=== PATIENT | male | born 2000 | race Caucasian/White ===

== ENCOUNTER 2023-06-14 10:14 | Emergency (ER) | payer MEDICAID, SELFPAY ==
--- NOTE | ~2023-06-14 | XR_ITS ---
EXAMINATION: XR CHEST CLINICAL INFORMATION: Chest discomfort with movement COMPARISON: 08/28/2019 TECHNIQUE: Frontal view of the chest was obtained. FINDINGS: The lungs are hypoinflated. Tiny area of atelectasis present in the left costophrenic angle. No significant abnormality is noted involving the heart, lungs, mediastinum, bony thorax or soft tissues. XR/XR chest 1V IMPRESSION: No acute intrathoracic disease.
--- NOTE | 2023-06-14 10:18 | ECG_ITS ---
Test Reason : cp Blood Pressure : / mmHG Vent. Rate : 069 BPM Atrial Rate : 069 BPM P-R Int : 164 ms QRS Dur : 098 ms QT Int : 358 ms P-R-T Axes : 026 -13 018 degrees QTc Int : 383 ms Normal sinus rhythm Minimal voltage criteria for LVH, may be normal variant ( R in aVL ) Borderline ECG No previous ECGs available Referred By: Generic ED Physician Electronically Signed By:Eduardo Suero
[2023-06-14 10:28] VITALS: BP 122/87; PULSE 61; RESP 18; TEMP 36.7; O2SAT 98; BMI 34.2
--- NOTE | 2023-06-14 10:49 | ED.GENADULT ---
HPI - General Adult General Chief complaint: Upper Respiratory Symptoms Stated complaint: chest pain Time Seen by Provider: 06/14/23 10:47 Source: patient Mode of arrival: ambulatory Limitations: no limitations History of Present Illness HPI narrative: Patient is a 22-year-old male presenting to the emergency department with complaint of right anterior chest pain for the past 3 days. He reports that prior to onset of his chest pain, he had congestion and cough for several days. Denies fevers. Denies shortness of breath. Took ibuprofen with temporary relief. States pain increases with laughing, laying on right side. Denies calf pain or swelling. MD complaint: chest pain Onset (ago): day(s) Location: chest Radiation: non-radiation Severity: moderate Quality: sharp Pain Consistency: colicky Relieving factors: rest Exacerbating factors: movement Associated symptoms: cough Treatments prior to arrival: NSAID Related Data Previous Rx's Medication Instructions Recorded benzonatate 100 mg capsule 100 mg PO TID PRN cough #20 caps 06/14/23 lidocaine 5 % topical patch 1 patch topical DAILY #15 ea 06/14/23 Allergies Allergy/AdvReac Type Severity Reaction Status Date / Time No Known Allergies Allergy Unverified 12/07/19 17:11 [No Known Allergies*] Review of Systems Review of Systems: As per HPI. Yes all other systems are reviewed and are negative Constitutional: Constitutional: Reports as per HPI [facility] Social History Social History Advance Directives: No Advance Directives Information Provided: No Physical Exam ED Vital Signs: Vital Signs - 24 hr 06/14/23 10:28 Temperature 98.1 F Pulse Rate 61 Respiratory Rate 18 Blood Pressure 122/87 Pulse Oximetry 98 Oxygen Delivery Method Room Air BMI result Body Mass Index 34.2 Vital signs have been reviewed and appear to be correct. Blood pressure normal. Heart rate normal. Respiratory rate normal. Temperature normal. Oxygen saturation normal. Const General: cooperative, healthy appearing and no acute distress Orientation/consciousness: oriented to person, oriented to place, oriented to time and patient oriented x3 Limitations: no limitations HENMT Head: Yes normocephalic and Yes atraumatic Ears: external ears normal General nose exam: Normal external nose present Face and sinus: Yes face symmetric Mouth: oropharynx normal and moist mucous membranes Throat: Yes uvula midline Eyes Pupils: Equal, round and reactive pupils present Neck Neck: Yes normal visual inspection and Yes supple Chest Chest palpation & inspection: normal inspection of the chest and tenderness rib right mid-clavicular line involving the 9th rib and involving the 10th rib Resp Effort & Inspection: normal respiratory effort and able to speak in complete sentences Auscultation: clear to auscultation bilaterally Cardio Rate: regular rate Rhythm: regular rhythm Heart sounds: S1 normal heart sound present and S2 normal heart sound present GI Palpation (GI): Soft to palpation and nontender Auscultation: normoactive bowel sounds General: Yes no CVA tenderness Back/Spine/Pelvis Back: no CVA tenderness Skin General skin exam: elasticity normal and turgor normal Neuro General: oriented to person, oriented to place, oriented to time, patient oriented x3, moves all extremities, no focal motor deficits and CN's II-XI intact bilaterally Cranial nerves: Yes Equal, round and reactive pupils present Cognition (Neuro): normal cognition Extrem General: Yes full ROM, Yes no pedal edema and Yes no calf tenderness Psych Mental Status: mental status grossly normal Affect: normal affect Thought process: Normal thought process present Medical Decision Making Medical Decision Making MDM Narrative: Patient is a 22-year-old male presenting to the emergency department with complaint of right anterior chest pain for the past 3 days. On exam patient is awake, A+Ox3, VS WNL, afebrile, normal neurological exam without focal deficits, physical exam findings as above. Given reported symptoms and physical exam findings, initial differential includes costochondritis, rib fracture, pneumothorax, pneumonia. Unlikely ACS, PE based on PERC. EKG shows normal sinus rhythm. Viral swabs negative. X-ray notable for no evidence of pneumothorax or pneumonia. My interpretation is in agreement with the radiologist's interpretation. Patient reported history and physical exam findings, feel symptoms are likely due to costochondritis. Advised patient alternate Tylenol and ibuprofen, will prescribe topical lidocaine patches as well as benzonatate for cough. Instructed patient to follow-up with his primary care provider. Return precautions discussed at bedside. Patient verbalized understanding of and agreement with plan. Differential Diagnosis Differential Diagnoses: The differential diagnosis associated with the presentation includes As per [facility] Admission/Observation Consideration of admission/observation: Escalation of care including admission/observation considered Patient would have been admitted to the hospital had their work up had any findings where hospital admission was appropriate and their clinical presentation warranted hospital admission. Lab Data [facility] Lab Attestation statement: I reviewed the patient's lab results. As per MDM. Labs: Lab Results 06/14/23 Range/Units 10:41 COVID-19 (DAMIEN) Negative (Negative) COVID-19 Clin Com See Note Influenza Type A (ERMA) Negative (Negative) Influenza Type B (ERMA) Negative (Negative) Influenza A & B Note See Note Independent Interpretation I performed an independent interpretation of an: EKG (normal sinus rhythm, 69bpm, normal [place] interval and QTc) and Plain X-Ray Interpretation: No evidence of pneumonia or pneumothorax on chest x-ray Radiology Impression Discussion of test interpretation with radiology: I have reviewed the radiologist's reading. Radiologist Impression: XR/XR chest 1V IMPRESSION: No acute intrathoracic disease. External Record Review External record reviewed: Inpatient record, Office record and Outpatient record Prescription Management I considered prescription management with: Pain Medication and Other Discharge Plan Discharge Clinical Impression: Acute costochondritis Patient Disposition: Home, Self-Care Instructions: Costochondritis (ED) Additional Instructions: You were evaluated in the emergency department today for chest pain. Your EKG and chest x-ray were normal. Your pain is likely due to costochondritis which is an inflammation of the muscles between her ribs. We recommend that you take 600 mg of ibuprofen or 650 mg of Tylenol every 6 hours. If necessary, you can alternate these medications every 3 hours. For example, at 9:00 a.m. take Tylenol, then at noon take ibuprofen, then at 3:00 p.m. take Tylenol, etc.. You are being prescribed topical lidocaine patches which you can wear for up to 12 hours in a 24 hour period. Do not apply heat directly over the patches. You are also being prescribed cough medicine called benzonatate. Please follow-up with your primary care provider. Return to the emergency department if you experience worsening or uncontrolled chest pain, shortness of breath, lightheadedness, feeling faint, loss of consciousness, nausea, vomiting, or any other concerning symptoms. Prescriptions: New lidocaine 5 % adhesive patch,medicated 1 patch topical DAILY Qty: 15 0RF Rx Instructions: leave on most painful area for up to 12 hrs benzonatate 100 mg capsule 100 mg PO TID PRN (Reason: cough) Qty: 20 0RF
[2023-06-14 11:12] LABS: COVID-19 Test Negative (Negative); IDNOW Serial# 08D9AD1C; IDNOW Serial# 152EDE1D; Influenza A Negative (Negative); Influenza B2 Negative (Negative)
[2023-06-14 13:11] VITALS: BP 117/82; PULSE 65; RESP 16; TEMP 36.7; O2SAT 98
== END 2023-06-14 13:12 | disposition home or self-care (01) ==
PROVIDERS: Emergency Provider Emergency Medicine
DX: M94.0 Chondrocostal junction syndrome [Tietze] (principal); Z11.52 Encounter for screening for COVID-19
CPT/HCPCS: 71045; 87502; 87635; 93005; 99283

== ENCOUNTER → 2023-06-14 10:18 | Outpatient (BNV) | payer MEDICAID, SELFPAY | PROVIDERS: Emergency Provider Emergency Medicine; Visit Provider Internal Medicine Cardiovascular Disease | DX: R07.9 Chest pain, unspecified (principal) | CPT/HCPCS: 93010 ==

== ENCOUNTER 2023-06-28 15:07 | Outpatient (REF) | payer MEDICAID, SELFPAY ==
[2023-06-29 09:09] LABS: ~HepC Num1 0.11 S/CO (0.00-0.79); ~Hepatitis C Antibody Nonreactive (Nonreactive)
[2023-07-02 07:48] LABS: TS Negative Control Passed; TS Panel A 0; TS Panel B 0; TS Positive Control Passed; TSpotTB Negative (Negative)
== END 2023-06-28 15:08 | disposition home or self-care (01) ==
LOC: HO.HHCL 15:07
PROVIDERS: Visit Provider Nurse Practitioner Family
DX: Z02.1 Encounter for pre-employment examination (principal)
CPT/HCPCS: 36415; 86481; 86803

== ENCOUNTER 2023-12-10 16:21 | Outpatient (REF) | payer MEDICAID, SELFPAY | END 2023-12-10 16:22 | disposition home or self-care (01) | LOC: HO.HHCLNP 16:21 | PROVIDERS: Visit Provider Nurse Practitioner Family | DX: Z02.1 Encounter for pre-employment examination (principal) | CPT/HCPCS: 80307 ==